=== PATIENT | female | born 1950 | race Caucasian/White ===

== ENCOUNTER → 2016-11-28 | Outpatient (CLI) | payer MEDICARE, OTHER ==
[2016-11-28 08:51] LABS: CH 32.7; HCT 43.5 % (34.0-46.0); HDW 2.06; HGB 14.2 gm/dL (11.4-16.0); MCH 33.5 pg (25.0-35.0); MCHC 32.6 g/dL (31.0-37.0); MCV 102.7 fL (80.0-100.0); Macrocytosis Slight; RBC 4.24 m/uL (3.80-5.40); WBC 9.5 k/uL (3.8-10.6)
[2016-11-28 09:35] LABS: Anion Gap 11 mmol/L; Blood Urea Nitrogen 19 mg/dL (7-17); Calcium 9.7 mg/dL (8.4-10.2); Carbon Dioxide 28 mmol/L (22-30); Chloride 105 mmol/L (98-107); Cholesterol 233 mg/dL (<200); Glucose 91 mg/dL (74-99); HDL Cholesterol 42 mg/dL (40-60); Non-African American GFR(MDRD) >60 (>60 ml/min/1.73 sqM); Potassium 4.5 mmol/L (3.5-5.1); Sodium 144 mmol/L (137-145); Triglycerides 158 mg/dL (<150)
[2016-11-28 14:26] LABS: Hemoglobin A1C 5.3 % (4.2-6.1)
== END | disposition home or self-care (01) ==
LOC: LABWHC1 07:04
PROVIDERS: ATTEND Psychiatry & Neurology Psychiatry
DX: E11.9 Type 2 diabetes mellitus without complications (principal); E03.9 Hypothyroidism, unspecified; E78.5 Hyperlipidemia, unspecified
CPT/HCPCS: 36415; 80048; 80061; 83036; 84443; 85027

== ENCOUNTER 2017-09-16 23:59 | Emergency (ER) | payer MEDICARE, OTHER ==
[2017-09-17 00:07] VITALS: TEMP 98.6
[2017-09-17] MEDS ORDERED: BUPIVACAINE (PF) 0.5% 30 ML VIAL SQ STA (00:45)
--- NOTE | 2017-09-17 01:13 | ED ---
ENT HPI - General Chief complaint: Dental/Oral Stated complaint: dental pain Time Seen by Provider: 09/17/17 00:23 Source: patient, RN notes reviewed, old records reviewed Mode of arrival: ambulatory Limitations: no limitations - History of Present Illness Initial comments: Pt is a 67 year old female with right lower dental pain for a few weeks, and reports it radiates toward her jaw and ear. She saw her dentist and was told that her teeth were fine. She reports that the pain is worsening so she came to ED. She does have multiple broken teeth. She denies decreased hearing, neck pain , nausea, fever, chills, vision changes. - Related Data Home Medications Medication Instructions Recorded Confirmed Omeprazole [PriLOSEC] 20 mg PO BID 09/20/15 10/07/15 Albuterol Inhaler [Ventolin Hfa 1 puff INHALATION RT-Q6H PRN 09/21/15 10/07/15 Inhaler] Albuterol Nebulized [Ventolin 2.5 mg INHALATION RT-Q6H PRN 09/21/15 10/07/15 Nebulized] DULoxetine HCL [Cymbalta] 60 mg PO DAILY 09/21/15 10/07/15 EPINEPHrine (Auto Inject) [Epipen] 0.3 mg IM ONCE PRN 09/21/15 10/07/15 Furosemide [Lasix] 20 mg PO BID 09/21/15 10/07/15 Potassium Chloride ER [K-Dur 20] 10 meq PO BID 09/21/15 10/07/15 clonazePAM [KlonoPIN] 1 mg PO HS 09/21/15 10/07/15 diphenhydrAMINE [Benadryl] 25 mg PO BID PRN 09/21/15 10/07/15 Lisinopril 40 mg PO QAM 10/03/15 10/07/15 amLODIPine [Norvasc] 10 mg PO QAM 10/03/15 10/07/15 clonazePAM [Clonazepam] 0.5 mg PO QAM 10/03/15 10/07/15 predniSONE 20 mg PO DIRECTED 10/03/15 10/07/15 Previous Rx's Medication Instructions Recorded Levothyroxine Sodium [Synthroid] 50 mcg PO DAILY@0630 #30 tab 09/26/15 Metoprolol Tartrate [Lopressor] 50 mg PO BID #60 tab 09/26/15 hydrALAZINE HCL [Apresoline] 25 mg PO TID #90 tab 09/26/15 HYDROcodone/APAP 7.5-325MG [[place] 1 tab PO Q6HR PRN #28 tab 10/07/15 7.5-325] Clindamycin [Cleocin] 450 mg PO TID 7 Days capsule 09/17/17 HYDROcodone/APAP 5-325MG [[place] 1 tab PO Q6HR PRN #12 tab 09/17/17 5-325] Allergies Allergy/AdvReac Type Severity Reaction Status Date / Time Latex, Natural Rubber Allergy Rash/Hives Verified 09/17/17 00:07 mold Allergy Unknown Verified 09/17/17 00:07 raw vegetable Allergy Unknown Verified 09/17/17 00:07 shellfish derived [Shellfish] Allergy Unknown Verified 09/17/17 00:08 DUST Allergy Unknown Uncoded 09/17/17 00:07 POLLEN Allergy Unknown Uncoded 09/17/17 00:07 TROPICAL FRUIT Allergy Unknown Uncoded 09/17/17 00:07 Review of Systems ROS Statement: Those systems with pertinent positive or pertinent negative responses have been documented in the HPI. ROS Other: All systems not noted in ROS Statement are negative. Past Medical History Past Medical History: Fibromyalgia, GERD/Reflux Additional Past Medical History / Comment(s): COLITIS. EDEMA FEET. History of Any Multi-Drug Resistant Organisms: None Reported Past Surgical History: Cholecystectomy, Tonsillectomy Past Anesthesia/Blood Transfusion Reactions: No Reported Reaction Past Psychological History: Anxiety Smoking Status: Never smoker Past Alcohol Use History: None Reported Past Drug Use History: None Reported - Past Family History Mother Family Medical History: Deep Vein Thrombosis (DVT) Father Family Medical History: Cancer Additional Family Medical History / Comment(s): LUNG General Exam - General Exam Comments Initial Comments: This is a 67 year old female, no distress Limitations: no limitations General appearance: alert, in no apparent distress Head exam: Present: atraumatic, normocephalic, normal inspection Eye exam: Present: normal appearance, PERRL, EOMI. Absent: scleral icterus, conjunctival injection, periorbital swelling ENT exam: Present: normal exam, mucous membranes moist, TM's normal bilaterally , other (minimally tender over right mastoid. ). Absent: normal oropharynx ( poor dentition, broken right lower molar. ) Neck exam: Present: normal inspection. Absent: tenderness, meningismus, lymphadenopathy Respiratory exam: Present: normal lung sounds bilaterally. Absent: respiratory distress, wheezes, rales, rhonchi, stridor Extremities exam: Present: normal inspection, full ROM, normal capillary refill. Absent: tenderness, pedal edema, joint swelling, calf tenderness Back exam: Present: normal inspection Neurological exam: Present: alert, oriented X3, CN II-XII intact Psychiatric exam: Present: normal affect, normal mood Course Vital Signs 09/17/17 09/17/17 00:02 03:16 Temperature 98.6 F Pulse Rate 85 69 Respiratory 18 16 Rate Blood Pressure 183/95 186/88 O2 Sat by Pulse 97 94 L Oximetry Procedures - Nerve Block Consent Obtained: verbal consent Local Anesthetic Used: Marcaine 0.5% Amount of anesthesia used: 4 Side: right Intraoral Nerve Block: inferior alveolar Procedure Successful: Yes Patient Tolerated Procedure: well, no complications Medical Decision Making - Medical Decision Making Patient is a 67 year old female with right lower dentla pain, broken tooth for weeks. Patient was minimally tender over mastoid. No ear drainage, no meningeal signs, no headache. Patient given inferior alveolar block and reports she feels better. Given mastoid tenderness, I did complete CT to rule out mastoiditis. There was no evidence of abnormalities. WBC was within normal limits. Discused starting patient on antibiotic and pain medication, discussed follow up with PCP and dentist. Return parameters discussed. - Lab Data Result diagrams: 09/17/17 02:00 09/17/17 02:00 Lab Results 09/17/17 09/17/17 Range/Units 02:00 02:00 WBC 11.5 H (3.8-10.6) k/uL RBC 4.27 (3.80-5.40) m/uL Hgb 13.7 (11.4-16.0) gm/dL Hct 43.5 (34.0-46.0) % MCV 101.9 H (80.0-100.0) fL MCH 32.1 (25.0-35.0) pg MCHC 31.5 (31.0-37.0) g/dL RDW 14.4 (11.5-15.5) % Plt Count 219 (150-450) k/uL Neutrophils % 71 % Lymphocytes % 23 % Monocytes % 4 % Eosinophils % 1 % Basophils % 1 % Neutrophils # 8.1 H (1.3-7.7) k/uL Lymphocytes # 2.7 (1.0-4.8) k/uL Monocytes # 0.4 (0-1.0) k/uL Eosinophils # 0.1 (0-0.7) k/uL Basophils # 0.1 (0-0.2) k/uL Macrocytosis Slight Sodium 142 (137-145) mmol/L Potassium 4.4 (3.5-5.1) mmol/L Chloride 103 (98-107) mmol/L Carbon Dioxide 27 (22-30) mmol/L Anion Gap 12 mmol/L BUN 15 (7-17) mg/dL Creatinine 0.80 (0.52-1.04) mg/dL Est GFR (MDRD) Af Amer >60 (>60 ml/min/1.73 sqM) Est GFR (MDRD) Non-Af >60 (>60 ml/min/1.73 sqM) Glucose 113 H (74-99) mg/dL Calcium 9.0 (8.4-10.2) mg/dL - Radiology Data Radiology results: report reviewed CT is negative for any acute process. Disposition Clinical Impression: Pain, dental Disposition: HOME SELF-CARE Condition: Good Instructions: Toothache (ED) Additional Instructions: Patient advised to follow-up with primary care provider. Return to emergency department if any alarming signs or symptoms occur. Prescriptions: Clindamycin [Cleocin] 450 mg PO TID 7 Days capsule HYDROcodone/APAP 5-325MG [[place] 5-325] 1 tab PO Q6HR PRN #12 tab PRN Reason: Pain Referrals: Doug Herbert MD [Primary Care Provider] - 1-2 days Time of Disposition: 01:12
[2017-09-17 02:04] LABS: Basophils # (A) 0.1 k/uL (0-0.2); Basophils % (A) 1 %; Eosinophils # (A) 0.1 k/uL (0-0.7); Eosinophils % (A) 1 %; HCT 43.5 % (34.0-46.0); HGB 13.7 gm/dL (11.4-16.0); Lymphocytes # (A) 2.7 k/uL (1.0-4.8); Lymphocytes % (A) 23 %; MCH 32.1 pg (25.0-35.0); MCHC 31.5 g/dL (31.0-37.0); MCV 101.9 fL (80.0-100.0); Macrocytosis Slight; Mean Platelet Volume 9.7; Monocytes # (A) 0.4 k/uL (0-1.0); Monocytes % (A) 4 %; Neutrophils # (A) 8.1 k/uL (1.3-7.7); Neutrophils % (A) 71 %; Platelet Count 219 k/uL (150-450); RBC 4.27 m/uL (3.80-5.40); RDW 14.4 % (11.5-15.5); WBC 11.5 k/uL (3.8-10.6)
[2017-09-17 02:14] LABS: Anion Gap 12 mmol/L; Blood Urea Nitrogen 15 mg/dL (7-17); Carbon Dioxide 27 mmol/L (22-30); Chloride 103 mmol/L (98-107); Glucose 113 mg/dL (74-99); Potassium 4.4 mmol/L (3.5-5.1); Sodium 142 mmol/L (137-145)
--- NOTE | 2017-09-17 02:43 | CT ---
EXAM: CT Maxillofacial Without Intravenous Contrast CLINICAL HISTORY: Reason: Pain TECHNIQUE: Axial computed tomography images of the head/brain and face without intravenous contrast. CTDI is 30.60 mGy and DLP is 624.20 mGy-cm. This CT exam was performed using one or more of the following dose reduction techniques: automated exposure control, adjustment of the mA and/or kV according to patient size, and/or use of iterative reconstruction technique. COMPARISON: None. FINDINGS: Bones/joints: No acute fracture. Soft tissues: Unremarkable. Sinuses: Mild polypoid mucosal thickening within bilateral maxillary sinuses and minimal mucosal thickening involving bilateral ethmoid and frontal sinuses. Mild right sphenoid sinus mucosal thickening. Postoperative findings related to prior endoscopic sinus surgery with maxillary antrostomies, ethmoidectomies and medial turbinectomies Mastoid air cells: Unremarkable as visualized. Orbits: Unremarkable as visualized. IMPRESSION: No acute facial bone fracture. Paranasal sinus disease as described in body of report.
[2017-09-17 03:18] VITALS: BP 186/88; PULSE 69; RESP 16
== END 2017-09-17 03:23 | disposition home or self-care (01) ==
LOC: EC 23:59
DX: K08.89 Other specified disorders of teeth and supporting structures (principal); M79.7 Fibromyalgia; K21.9 Gastro-esophageal reflux disease without esophagitis; F41.9 Anxiety disorder, unspecified; Z79.52 Long term (current) use of systemic steroids; Z79.891 Long term (current) use of opiate analgesic; Z79.899 Other long term (current) drug therapy; Z91.040 Latex allergy status; Z91.048 Other nonmedicinal substance allergy status; Z91.018 Allergy to other foods; Z91.013 Allergy to seafood
CPT/HCPCS: 36415; 64400; 70486; 80048; 85025; 99284

== ENCOUNTER → 2018-12-29 | Outpatient (CLI) | payer MEDICARE, OTHER ==
[2018-12-29 18:56] LABS: HCT 40.9 % (34.0-46.0); HGB 13.5 gm/dL (11.4-16.0); MCH 32.9 pg (25.0-35.0); MCHC 33.1 g/dL (31.0-37.0); MCV 99.5 fL (80.0-100.0); Mean Platelet Volume 10.2; Platelet Count 217 k/uL (150-450); RBC 4.11 m/uL (3.80-5.40); RDW 12.8 % (11.5-15.5)
== END | disposition home or self-care (01) ==
LOC: LABWHC1 16:57
PROVIDERS: ATTEND Psychiatry & Neurology Psychiatry
DX: E03.9 Hypothyroidism, unspecified (principal)
CPT/HCPCS: 36415; 82947; 84443; 85027

== ENCOUNTER 2019-02-02 13:29 | Inpatient (IN) | payer MEDICARE, OTHER ==
[2019-02-02] MEDS ORDERED: ALBUTEROL NEBULIZED 2.5 MG/3 ML INHALATION STA (14:35)
[2019-02-02] MEDS ORDERED: methylPREDNISolone SOD SUCCI 125 MG/2 ML VIAL IV STA (14:35)
[2019-02-02] MEDS ORDERED: IPRATROPIUM 0.5 MG/2.5 ML NEBU INHALATION STA (14:35)
--- NOTE | 2019-02-02 14:39 | ED ---
General Adult HPI - General Chief complaint: Shortness of Breath Stated complaint: DIONISIO Time Seen by Provider: 02/02/19 13:45 Source: patient, RN notes reviewed Mode of arrival: wheelchair Limitations: no limitations - History of Present Illness Initial comments: This is a 68-year-old female presents emergency department stating she has a history of asthma. Patient states she was upstairs getting an infusion when she started having some difficulty breathing and felt as though she was wheezing. Patient states she's had the infusion for 6 months and doesn't believe it's related. Patient denies any chest pain difficulty breathing shortness breath p er patient states she has a dry cough but no sputum production. Patient denies any recent fever chills. Patient denies any lightheadedness dizziness or near syncopal episode. Patient denies headache patient denies numbness weakness. Patient denies any abdominal pain patient denies nausea vomiting diarrhea. Patient denies any rashes per patient denies any sensation that her throat is closing off her airway is closing off. These symptoms are typical of her asthma. Patient denies any calf swelling or tenderness. - Related Data Home Medications Medication Instructions Recorded Confirmed Albuterol Inhaler [Ventolin Hfa 1 puff INHALATION RT-Q6H PRN 09/21/15 02/02/19 Inhaler] Albuterol Nebulized [Ventolin 2.5 mg INHALATION RT-Q6H PRN 09/21/15 02/02/19 Nebulized] DULoxetine HCL [Cymbalta] 60 mg PO DAILY 09/21/15 02/02/19 EPINEPHrine (Auto Inject) [Epipen] 0.3 mg IM ONCE PRN 09/21/15 02/02/19 Potassium Chloride ER [K-Dur 20] 10 meq PO BID 09/21/15 02/02/19 clonazePAM [KlonoPIN] 0.5 mg PO HS 09/21/15 02/02/19 diphenhydrAMINE [Benadryl] 25 mg PO BID PRN 09/21/15 02/02/19 clonazePAM [Clonazepam] 0.25 mg PO AC-BID 10/03/15 02/02/19 Tiotropium Schneider [Spiriva 1 puff INHALATION RT-DAILY 06/28/18 02/02/19 Respimat] Bumetanide [BUMEX] 1 mg PO BID 02/02/19 02/02/19 Citalopram Hydrobromide 20 mg PO DAILY 02/02/19 02/02/19 [Citalopram HBr] Levothyroxine Sodium [Synthroid] 100 mcg PO DAILY@0300 02/02/19 02/02/19 Metoprolol Succinate (ER) [Toprol 50 mg PO DAILY 02/02/19 02/02/19 Xl] Montelukast Sodium [Singulair] 10 mg PO HS 02/02/19 02/02/19 predniSONE 5 mg PO DAILY 02/02/19 02/02/19 Allergies Allergy/AdvReac Type Severity Reaction Status Date / Time Latex, Natural Rubber Allergy Rash/Hives Verified 02/02/19 13:56 mold Allergy Unknown Verified 02/02/19 13:56 raw vegetable Allergy Unknown Verified 02/02/19 13:56 shellfish derived [Shellfish] Allergy Unknown Verified 02/02/19 13:56 DUST Allergy Unknown Uncoded 02/02/19 13:44 POLLEN Allergy Unknown Uncoded 02/02/19 13:44 TROPICAL FRUIT Allergy Unknown Uncoded 02/02/19 13:44 Review of Systems ROS Statement: Those systems with pertinent positive or pertinent negative responses have been documented in the HPI. ROS Other: All systems not noted in ROS Statement are negative. Past Medical History Past Medical History: Asthma, Fibromyalgia, GERD/Reflux, Hypertension Additional Past Medical History / Comment(s): COLITIS. EDEMA FEET. History of Any Multi-Drug Resistant Organisms: None Reported Past Surgical History: Cholecystectomy, Tonsillectomy Past Anesthesia/Blood Transfusion Reactions: No Reported Reaction Past Psychological History: Anxiety Smoking Status: Former smoker Past Alcohol Use History: None Reported Past Drug Use History: None Reported - Past Family History Mother Family Medical History: Deep Vein Thrombosis (DVT) Father Family Medical History: Cancer Additional Family Medical History / Comment(s): LUNG General Exam - General Exam Comments Initial Comments: GENERAL: Patient is well-developed and well-nourished. Patient is nontoxic and well- hydrated and is in moderate distress. ENT: Neck is soft and supple. No significant lymphadenopathy is noted. Oropharynx is clear. Moist mucous membranes. Neck has full range of motion without eliciting any pain. EYES: The sclera were anicteric and conjunctiva were pink and moist. Extraocular movements were intact and pupils were equal round and reactive to light. Eyelids were unremarkable. PULMONARY: Patient is diffusely wheezing. CARDIOVASCULAR: There is a regular rate and rhythm without any murmurs gallops or rubs. ABDOMEN: Soft and nontender with normal bowel sounds. SKIN: Skin is clear with no lesions or rashes and otherwise unremarkable. NEUROLOGIC: Patient is alert and oriented x3. Cranial nerves II through XII are grossly intact. Motor and sensory are also intact. Normal speech, volume and content. Symmetrical smile. MUSCULOSKELETAL: Normal extremities with adequate strength and full range of motion. No lower extremity swelling or edema. No calf tenderness. LYMPHATICS: No significant lymphadenopathy is noted PSYCHIATRIC: Normal psychiatric evaluation. Limitations: no limitations Course Vital Signs 02/02/19 02/02/19 02/02/19 13:42 13:55 14:45 Temperature 99.0 F Pulse Rate 82 74 Respiratory 24 25 H 18 Rate Blood Pressure 147/84 134/34 O2 Sat by Pulse 98 96 Oximetry 02/02/19 02/02/19 02/02/19 15:01 15:17 15:57 Temperature Pulse Rate 72 73 79 Respiratory 18 Rate Blood Pressure 146/73 O2 Sat by Pulse 99 Oximetry Medical Decision Making - Medical Decision Making EKG shows normal sinus rhythm at [address] interval 134 QRS is 92 QT interval 408 QTC is 459 per patient's EKG shows no ST segment elevation or depression. Patient received multiple treatments in the emergency department and steroids. I listened to the patient after the treatments she was doing better and moving more air but still had some wheezing and still felt short of breath. Dr. Herbert called and wanted the patient admitted admitted the patient. - Lab Data Result diagrams: 02/02/19 13:10 02/02/19 13:10 Lab Results 02/02/19 02/02/19 02/02/19 Range/Units 13:10 13:10 13:10 WBC 8.1 (3.8-10.6) k/uL RBC 4.44 (3.80-5.40) m/uL Hgb 14.4 (11.4-16.0) gm/dL Hct 44.7 (34.0-46.0) % MCV 100.7 H (80.0-100.0) fL MCH 32.5 (25.0-35.0) pg MCHC 32.2 (31.0-37.0) g/dL RDW 12.6 (11.5-15.5) % Plt Count 227 (150-450) k/uL Neutrophils % 45 % Lymphocytes % 43 % Monocytes % 5 % Eosinophils % 4 % Basophils % 1 % Neutrophils # 3.7 (1.3-7.7) k/uL Lymphocytes # 3.5 (1.0-4.8) k/uL Monocytes # 0.4 (0-1.0) k/uL Eosinophils # 0.3 (0-0.7) k/uL Basophils # 0.1 (0-0.2) k/uL PT 9.7 (9.0-12.0) sec INR 0.9 (<1.2) APTT 26.4 (22.0-30.0) sec Sodium 142 (137-145) mmol/L Potassium 4.6 (3.5-5.1) mmol/L Chloride 104 (98-107) mmol/L Carbon Dioxide 31 H (22-30) mmol/L Anion Gap 7 mmol/L BUN 14 (7-17) mg/dL Creatinine 1.37 H (0.52-1.04) mg/dL Est GFR (CKD-EPI)AfAm 46 (>60 ml/min/1.73 sqM) Est GFR (CKD-EPI)NonAf 40 (>60 ml/min/1.73 sqM) Glucose 78 (74-99) mg/dL Calcium 9.7 (8.4-10.2) mg/dL Total Bilirubin 0.8 (0.2-1.3) mg/dL AST 40 H (14-36) U/L ALT 39 (9-52) U/L Alkaline Phosphatase 88 (38-126) U/L Troponin I (0.000-0.034) ng/mL Total Protein 7.2 (6.3-8.2) g/dL Albumin 4.5 (3.5-5.0) g/dL 02/02/19 Range/Units 13:10 WBC (3.8-10.6) k/uL RBC (3.80-5.40) m/uL Hgb (11.4-16.0) gm/dL Hct (34.0-46.0) % MCV (80.0-100.0) fL MCH (25.0-35.0) pg MCHC (31.0-37.0) g/dL RDW (11.5-15.5) % Plt Count (150-450) k/uL Neutrophils % % Lymphocytes % % Monocytes % % Eosinophils % % Basophils % % Neutrophils # (1.3-7.7) k/uL Lymphocytes # (1.0-4.8) k/uL Monocytes # (0-1.0) k/uL Eosinophils # (0-0.7) k/uL Basophils # (0-0.2) k/uL PT (9.0-12.0) sec INR (<1.2) APTT (22.0-30.0) sec Sodium (137-145) mmol/L Potassium (3.5-5.1) mmol/L Chloride (98-107) mmol/L Carbon Dioxide (22-30) mmol/L Anion Gap mmol/L BUN (7-17) mg/dL Creatinine (0.52-1.04) mg/dL Est GFR (CKD-EPI)AfAm (>60 ml/min/1.73 sqM) Est GFR (CKD-EPI)NonAf (>60 ml/min/1.73 sqM) Glucose (74-99) mg/dL Calcium (8.4-10.2) mg/dL Total Bilirubin (0.2-1.3) mg/dL AST (14-36) U/L ALT (9-52) U/L Alkaline Phosphatase (38-126) U/L Troponin I <0.012 (0.000-0.034) ng/mL Total Protein (6.3-8.2) g/dL Albumin (3.5-5.0) g/dL Disposition Clinical Impression: Asthma exacerbation Disposition: ADMITTED IP TO THIS HOSP Referrals: Doug Herbert MD [Primary Care Provider] - 1-2 days Time of Disposition: 16:10
[2019-02-02 14:51] LABS: Basophils # (A) 0.1 k/uL (0-0.2); Basophils % (A) 1 %; Eosinophils # (A) 0.3 k/uL (0-0.7); Eosinophils % (A) 4 %; HCT 44.7 % (34.0-46.0); HGB 14.4 gm/dL (11.4-16.0); Lymphocytes # (A) 3.5 k/uL (1.0-4.8); Lymphocytes % (A) 43 %; MCH 32.5 pg (25.0-35.0); MCHC 32.2 g/dL (31.0-37.0); MCV 100.7 fL (80.0-100.0); Mean Platelet Volume 9.4; Monocytes # (A) 0.4 k/uL (0-1.0); Monocytes % (A) 5 %; Neutrophils # (A) 3.7 k/uL (1.3-7.7); Neutrophils % (A) 45 %; Platelet Count 227 k/uL (150-450); RBC 4.44 m/uL (3.80-5.40); RDW 12.6 % (11.5-15.5); WBC 8.1 k/uL (3.8-10.6)
--- NOTE | 2019-02-02 14:58 | XR ---
EXAMINATION TYPE: XR chest 2V DATE OF EXAM: 02/02/2019 COMPARISON: 09/20/2015 TECHNIQUE: PA and lateral views submitted. HISTORY: Shortness of breath, cough and fever FINDINGS: The lungs are clear and there is no pneumothorax, pleural effusion, or focal pneumonia. Hypertrophi c and degenerative change of the spine. Atherosclerotic change aorta. IMPRESSION: 1. No acute process.
[2019-02-02 14:59] LABS: Albumin 4.5 g/dL (3.5-5.0); Calcium 9.7 mg/dL (8.4-10.2); Potassium 4.6 mmol/L (3.5-5.1); Total Bilirubin 0.8 mg/dL (0.2-1.3); Total Protein 7.2 g/dL (6.3-8.2)
[2019-02-02 15:00] LABS: INR 0.9 (<1.2); Partial Thromboplastin Time 26.4 sec (22.0-30.0); Prothrombin Time 9.7 sec (9.0-12.0)
[2019-02-02] MEDS: methylPREDNISolone SOD SUCCI 125 MG/2 ML VIAL IV SCH ×2 (18:38→23:51)
[2019-02-02] MEDS: clonazePAM 0.5 MG TAB PO SCH (21:06)
[2019-02-02] MEDS: POTASSIUM CHLORIDE ER 10 MEQ TAB.ER.PRT PO SCH (21:07)
[2019-02-02] MEDS: MONTELUKAST 10 MG TAB PO SCH (21:07)
[2019-02-02] MEDS: BUMETANIDE 1 MG TAB PO SCH (21:07)
[2019-02-02] MEDS: CITALOPRAM HYDROBROMIDE 20 MG TAB PO SCH (21:07)
[2019-02-02] MEDS: IPRATROPIUM-ALBUTEROL 3 ML NEB INHALATION PRN (21:13)
[2019-02-02] MEDS: LEVOTHYROXINE 100 MCG TAB PO SCH (23:55)
[2019-02-03] MEDS: methylPREDNISolone SOD SUCCI 125 MG/2 ML VIAL IV SCH ×3 (06:08→16:55)
[2019-02-03] MEDS: predniSONE 5 MG TAB PO SCH (08:53)
[2019-02-03] MEDS: POTASSIUM CHLORIDE ER 10 MEQ TAB.ER.PRT PO SCH ×2 (08:53→20:58)
[2019-02-03] MEDS: BUMETANIDE 1 MG TAB PO SCH ×2 (08:53→21:01)
[2019-02-03] MEDS: METOPROLOL SUCCINATE (ER) 50 MG TAB.ER.24H PO SCH (08:53)
[2019-02-03] MEDS: DULoxetine HCL 60 MG CAPSULE.DR PO SCH (08:53)
--- NOTE | 2019-02-03 09:05 | CT ---
EXAMINATION TYPE: CT chest wo con DATE OF EXAM: 02/03/2019 COMPARISON: Chest x-ray yesterday HISTORY: Asthma exacerbation CT DLP: 596 mGycm. Automated Exposure Control for Dose Reduction was Utilized. TECHNIQUE: CT scan of the thorax is performed without IV contrast. FINDINGS: LUNGS: The lungs are grossly clear, there is no concerning parenchymal mass or nodule identified. T here is no pleural effusion or pneumothorax seen. The tracheobronchial tree is patent. MEDIASTINUM: Lack of IV contrast is noted to limit evaluation for mediastinal and especially hilar ad enopathy. There are no definitive greater than 1 cm hilar or mediastinal lymph nodes. No cardiomega ly or pericardial effusion is seen. OTHER: [id number] multilevel spurring in the thoracic spine is present with slightly exaggerate d thoracic kyphosis. Posterior spur disc effaces the anterior thecal sac at T7-T8 level sagittal imag e 57. IMPRESSION: No suspicious acute cardiopulmonary process
[2019-02-03] MEDS: IPRATROPIUM 0.5 MG/2.5 ML NEBU INHALATION SCH ×3 (09:15→19:25)
[2019-02-03] MEDS: ACETAMINOPHEN TAB 325 MG TAB PO PRN ×3 (09:32→22:06)
[2019-02-03 11:38] LABS: Potassium 3.9 mmol/L (3.5-5.1)
--- NOTE | 2019-02-03 14:00 | P.HPIM ---
History of Present Illness H&P Date: 02/03/19 Chief Complaint: Difficulty breathing This is a 68-year-old female who had been receiving a Xolair infusion developed difficulty breathing with possible wheezing. Patient has been receiving this for the last 6 months, does not relate her difficulty in breathing to this infus ion. Harsh dry nonproductive cough. Denies any lightheadedness dizziness or focal deficits. Denies headache, loss of sensation, numbness. Denies fevers or chills Denies any chest pain, palpitations or increased shortness of breath. Denies nausea vomiting or diarrhea. Denies abdominal pain.Evaluated in the ER, started on IV steroids, nebulized bronchodilators. Afebrile, normal WBC. Creatinine on admission 1.37, had been using Motrin at home ,currently 0.85. EKG reporting normal sinus rhythm with incomplete right bundle branch block. Exertional dyspnea. Maintaining O2 sats in the mid 90s on room air. IS 2500. Chest x-ray nonacute. Chest CT with no suspicious acute cardiopulmonary process. Review of Systems ROS Statement: Those systems with pertinent positive or pertinent negative responses have been documented in the HPI. ROS Other: All systems not noted in ROS Statement are negative. Past Medical History Past Medical History: Asthma, Fibromyalgia, GERD/Reflux, Hypertension Additional Past Medical History / Comment(s): COLITIS. EDEMA FEET. History of Any Multi-Drug Resistant Organisms: None Reported Past Surgical History: Cholecystectomy, Tonsillectomy Past Anesthesia/Blood Transfusion Reactions: No Reported Reaction Past Psychological History: Anxiety Smoking Status: Former smoker Past Alcohol Use History: None Reported Past Drug Use History: None Reported - Past Family History Mother Family Medical History: Deep Vein Thrombosis (DVT) Father Family Medical History: Cancer Additional Family Medical History / Comment(s): LUNG Medications and Allergies Home Medications Medication Instructions Recorded Confirmed Type Albuterol Inhaler [Ventolin Hfa 1 puff INHALATION RT-Q6H PRN 09/21/15 02/02/19 History Inhaler] Albuterol Nebulized [Ventolin 2.5 mg INHALATION RT-Q6H PRN 09/21/15 02/02/19 History Nebulized] DULoxetine HCL [Cymbalta] 60 mg PO DAILY 09/21/15 02/02/19 History EPINEPHrine (Auto Inject) [Epipen] 0.3 mg IM ONCE PRN 09/21/15 02/02/19 History Potassium Chloride ER [K-Dur 20] 10 meq PO BID 09/21/15 02/02/19 History clonazePAM [KlonoPIN] 0.5 mg PO HS 09/21/15 02/02/19 History diphenhydrAMINE [Benadryl] 25 mg PO BID PRN 09/21/15 02/02/19 History clonazePAM [Clonazepam] 0.25 mg PO AC-BID 10/03/15 02/02/19 History Tiotropium [place] [Spiriva 1 puff INHALATION RT-DAILY 06/28/18 02/02/19 History Respimat] Bumetanide [BUMEX] 1 mg PO BID 02/02/19 02/02/19 History Citalopram Hydrobromide 20 mg PO DAILY 02/02/19 02/02/19 History [Citalopram HBr] Levothyroxine Sodium [Synthroid] 100 mcg PO DAILY@0300 02/02/19 02/02/19 History Metoprolol Succinate (ER) [Toprol 50 mg PO DAILY 02/02/19 02/02/19 History Xl] Montelukast Sodium [Singulair] 10 mg PO HS 02/02/19 02/02/19 History predniSONE 5 mg PO DAILY 02/02/19 02/02/19 History Allergies Allergy/AdvReac Type Severity Reaction Status Date / Time Latex, Natural Rubber Allergy Rash/Hives Verified 02/02/19 17:57 mold Allergy Unknown Verified 02/02/19 17:57 raw vegetable Allergy Unknown Verified 02/02/19 17:57 shellfish derived [Shellfish] Allergy Unknown Verified 02/02/19 17:57 DUST Allergy Unknown Uncoded 02/02/19 17:57 POLLEN Allergy Unknown Uncoded 02/02/19 17:57 TROPICAL FRUIT Allergy Unknown Uncoded 02/02/19 17:57 Physical Exam Vitals: Vital Signs Temp Pulse Pulse Resp BP BP Pulse Ox 02/02/19 23:00 98.2 F 77 18 148/71 96 02/02/19 21:18 84 02/02/19 21:12 76 02/02/19 20:00 98.8 F 76 18 143/66 96 02/02/19 17:48 20 02/02/19 17:38 98.4 F 76 20 134/85 94 L 02/02/19 15:57 79 18 146/73 99 02/02/19 15:17 73 02/02/19 15:01 72 02/02/19 14:45 74 18 134/34 96 02/02/19 13:55 25 H 02/02/19 13:42 99.0 F 82 24 147/84 98 Intake and Output 02/02/19 02/03/19 02/03/19 22:59 06:59 14:59 Intake Total 1050 580 Balance 1050 580 Intake: Oral 1050 580 PHYSICAL EXAM: VITAL SIGNS: As above GENERAL: Sitting up at side of bed, respiratory effort increased HEENT: Conjunctivae normal. eyes normal. Oral mucosa moist. NECK: No JVD. No thyroid enlargement. No LNs CARDIOVASCULAR: S1, S2 muffled. No murmur RESPIRATION: Breath sounds diminished in the bases. No rhonchi or crackles. No wheezing, No bronchial breathing. ABDOMEN: Soft, nontender . No guarding. no masses palpable.Bowel sounds heard. LEGS: No edema. no swelling. No calf tenderness. PSYCHIATRY: Alert and oriented -3, mood and affect normal. NERVOUS SYSTEM: Cranial N 2-12 grossly normal. Moves all 4 limbs. Diffuse weakness No focal deficits. No sensory deficit. Skin: no lesions,no rash, warm and dry Joints: No active swelling. No inflammation. Lymphatic system. No LN neck axilla or groin. Results CBC & Chem 7: 02/02/19 13:10 02/03/19 10:29 Labs: Abnormal Lab Results - Last 24 Hours (Table) 02/02/19 02/02/19 Range/Units 13:10 13:10 MCV 100.7 H (80.0-100.0) fL Carbon Dioxide 31 H (22-30) mmol/L Creatinine 1.37 H (0.52-1.04) mg/dL AST 40 H (14-36) U/L Thrombosis Risk Factor Assmnt - Choose All That Apply Each Factor Represents 1 point: Abnormal pulmonary function (COPD), Obesity (BMI >25), Swollen legs (current) Each Risk Factor Represents 2 Points: Age 61-74 years Other congenital or acquired thrombophilia - If yes, enter type in comment: No Thrombosis Risk Factor Assessment Total Risk Factor Score: 5 Thrombosis Risk Factor Assessment Level: High Risk Assessment and Plan Assessment: -Acute asthma exacerbation, in a patient with history of chronic asthma. Possible but doubtful reaction to the Xolair, as patient has been receiving these infusions for 6 months. -Acute renal insufficiency, present on admission, resolved. -Morbid Obesity, BMI 41.6 -Gastroesophageal reflux disease -Hypertension -Anxiety -Former nicotine dependence. Plan: Continue on current medication regime ,monitoring and symptomatic treatment. Maintain nebulized bronchodilators, IV steroids. Possible pulmonary toileting with incentive spirometer reinforced. Increased stimulation as tolerated. Home meds have been reviewed and resumed. Patient advised to not use Motrin on a regular basis, given her elevated creatinine on admission. GI & DVT prophylaxis in place . Potential discharge planning in progress for the next 24- 48 hours.Further recommendations to follow. The impression and plan of care has been dictated as directed. : I performed a history and examination of this patient, discussed the same with the dictator. I agree with the dictator's note ,documented as a scribe. Any additional findings or plans will be noted. Time taken: 35 minutes
[2019-02-03] MEDS ORDERED: PANTOPRAZOLE 40 MG/10 ML VIAL IVP SCH (14:15)
[2019-02-03] MEDS: IPRATROPIUM-ALBUTEROL 3 ML NEB INHALATION PRN ×2 (15:44→19:25)
[2019-02-03] MEDS: PANTOPRAZOLE 40 MG TABLET PO SCH (16:02)
[2019-02-03] MEDS: clonazePAM 0.5 MG TAB PO SCH (20:57)
[2019-02-03] MEDS: CITALOPRAM HYDROBROMIDE 20 MG TAB PO SCH (20:57)
[2019-02-03] MEDS: MONTELUKAST 10 MG TAB PO SCH (20:59)
[2019-02-03] MEDS: HEPARIN SODIUM,PORCINE 5,000 UNIT/ML 1 ML VIAL SQ SCH (20:59)
[2019-02-04] MEDS: methylPREDNISolone SOD SUCCI 125 MG/2 ML VIAL IV SCH ×2 (00:50→06:53)
[2019-02-04] MEDS: LEVOTHYROXINE 100 MCG TAB PO SCH ×2 (00:50→23:55)
[2019-02-04] MEDS: ACETAMINOPHEN TAB 325 MG TAB PO PRN ×3 (06:54→21:54)
[2019-02-04] MEDS ORDERED: PANTOPRAZOLE 40 MG TABLET PO SCH (07:30)
[2019-02-04] MEDS: IPRATROPIUM 0.5 MG/2.5 ML NEBU INHALATION SCH ×4 (09:14→20:06)
[2019-02-04] MEDS: BUMETANIDE 1 MG TAB PO SCH ×2 (09:23→21:52)
[2019-02-04] MEDS: HEPARIN SODIUM,PORCINE 5,000 UNIT/ML 1 ML VIAL SQ SCH ×2 (09:24→21:55)
[2019-02-04] MEDS: METOPROLOL SUCCINATE (ER) 50 MG TAB.ER.24H PO SCH (09:24)
[2019-02-04] MEDS: DULoxetine HCL 60 MG CAPSULE.DR PO SCH (09:25)
[2019-02-04] MEDS: PANTOPRAZOLE 40 MG TABLET PO SCH (09:25)
[2019-02-04] MEDS: POTASSIUM CHLORIDE ER 10 MEQ TAB.ER.PRT PO SCH ×2 (09:25→21:51)
[2019-02-04] MEDS: predniSONE 5 MG TAB PO SCH (09:25)
[2019-02-04] MEDS: AZITHROMYCIN 500 MG in SODIUM CHLORIDE 0.9% 250 ML IVPB SCH (10:50)
[2019-02-04] MEDS ORDERED: methylPREDNISolone SOD SUCCI 40 MG/ML 1 ML VIAL IV SCH (11:00)
[2019-02-04] MEDS: methylPREDNISolone SOD SUCCI 40 MG/ML 1 ML VIAL IV SCH ×2 (17:11→23:55)
[2019-02-04] MEDS: MONTELUKAST 10 MG TAB PO SCH (21:52)
[2019-02-04] MEDS: clonazePAM 0.5 MG TAB PO SCH (21:52)
[2019-02-04] MEDS: CITALOPRAM HYDROBROMIDE 20 MG TAB PO SCH (21:52)
[2019-02-05] MEDS: IPRATROPIUM-ALBUTEROL 3 ML NEB INHALATION PRN (07:34)
[2019-02-05] MEDS: IPRATROPIUM 0.5 MG/2.5 ML NEBU INHALATION SCH ×4 (07:36→19:18)
[2019-02-05] MEDS: ACETAMINOPHEN TAB 325 MG TAB PO PRN ×2 (08:24→20:12)
[2019-02-05] MEDS: PANTOPRAZOLE 40 MG TABLET PO SCH (08:25)
[2019-02-05] MEDS: BUMETANIDE 1 MG TAB PO SCH ×2 (08:26→20:12)
[2019-02-05] MEDS: methylPREDNISolone SOD SUCCI 40 MG/ML 1 ML VIAL IV SCH ×2 (08:26→15:59)
[2019-02-05] MEDS: AZITHROMYCIN 500 MG in SODIUM CHLORIDE 0.9% 250 ML IVPB SCH (08:26)
[2019-02-05] MEDS: POTASSIUM CHLORIDE ER 10 MEQ TAB.ER.PRT PO SCH ×2 (08:27→20:12)
[2019-02-05] MEDS: DULoxetine HCL 60 MG CAPSULE.DR PO SCH (08:27)
[2019-02-05] MEDS: METOPROLOL SUCCINATE (ER) 50 MG TAB.ER.24H PO SCH (08:27)
[2019-02-05] MEDS: HEPARIN SODIUM,PORCINE 5,000 UNIT/ML 1 ML VIAL SQ SCH ×2 (08:27→20:11)
[2019-02-05] MEDS: predniSONE 5 MG TAB PO SCH (08:27)
--- NOTE | 2019-02-05 13:15 | PN ---
PROGRESS NOTE SUBJECTIVE: 68-year-old white female with asthma exacerbation, has cough, congestion, shortness of breath with wheezing. Breathing is slowly improving. IV steroids and IV azithromycin been use. She is slowly improving. She will possibly be discharged home tomorrow. States she is not breathing good enough to go home today. Cardiovascular S1, S2. Lungs scattered rhonchi and wheeze. Hematology negative Homans. ASSESSMENT: 1. Asthma exacerbation. 2. Tracheobronchitis. 3. Acute hypoxemic respiratory distress. Continue with IV steroids, IV azithromycin, DuoNeb. Follow up in the next 24-48 hours. MMODL / IJN: [id number] /
[2019-02-05] MEDS: clonazePAM 0.5 MG TAB PO SCH ×2 (15:59→20:11)
[2019-02-05] MEDS: MONTELUKAST 10 MG TAB PO SCH (20:12)
[2019-02-05] MEDS: CITALOPRAM HYDROBROMIDE 20 MG TAB PO SCH (20:12)
[2019-02-06] MEDS: methylPREDNISolone SOD SUCCI 40 MG/ML 1 ML VIAL IV SCH ×2 (00:20→08:00)
[2019-02-06] MEDS: LEVOTHYROXINE 100 MCG TAB PO SCH (00:20)
[2019-02-06] MEDS: PANTOPRAZOLE 40 MG TABLET PO SCH (06:17)
[2019-02-06] MEDS: clonazePAM 0.5 MG TAB PO SCH (06:18)
[2019-02-06] MEDS: POTASSIUM CHLORIDE ER 10 MEQ TAB.ER.PRT PO SCH (08:01)
[2019-02-06] MEDS: HEPARIN SODIUM,PORCINE 5,000 UNIT/ML 1 ML VIAL SQ SCH (08:01)
[2019-02-06] MEDS: AZITHROMYCIN 500 MG in SODIUM CHLORIDE 0.9% 250 ML IVPB SCH (08:01)
[2019-02-06] MEDS: METOPROLOL SUCCINATE (ER) 50 MG TAB.ER.24H PO SCH (08:01)
[2019-02-06] MEDS: BUMETANIDE 1 MG TAB PO SCH (08:01)
[2019-02-06] MEDS: predniSONE 5 MG TAB PO SCH (08:02)
[2019-02-06] MEDS: DULoxetine HCL 60 MG CAPSULE.DR PO SCH (08:02)
[2019-02-06] MEDS: IPRATROPIUM 0.5 MG/2.5 ML NEBU INHALATION SCH ×2 (08:05→13:11)
[2019-02-06 08:43] VITALS: BP 150/79; PULSE 71; RESP 20; TEMP 98.1
[2019-02-06] MEDS: ACETAMINOPHEN TAB 325 MG TAB PO PRN (10:05)
--- NOTE | 2019-02-06 10:42 | P.DS ---
Providers Date of admission: 02/04/19 18:13 Expected date of discharge: 02/06/19 Attending physician: Doug Herbert Primary [facility] physician[facility] Course: Final Diagnoses: -Acute asthma exacerbation with acute tracheobronchitis, in a patient with history of chronic asthma. Possible but doubtful reaction to the Xolair, as patient has been receiving these infusions for 6 months. -Acute hypoxic respiratory failure secondary to the above -Acute renal insufficiency, present on admission, resolved. -Morbid Obesity, BMI 41.6 -Gastroesophageal reflux disease -Hypertension -Anxiety -Former nicotine dependence. Hospital course:This is a 68-year-old female who had been receiving a Xolair infusion developed difficulty breathing with possible wheezing. Patient has been receiving this for the last 6 months, does not relate her difficulty in breathing to this infusion. Harsh dry nonproductive cough. Denies any lightheadedness dizziness or focal deficits. Denies headache, loss of sensation, numbness. Denies fevers or chills Denies any chest pain, palpitations or increased shortness of breath. Denies nausea vomiting or diarrhea. Denies abdominal pain.Evaluated in the ER, started on IV steroids, nebulized bronchodilators. Afebrile, normal WBC. Creatinine on admission 1.37, had been using Motrin at home ,currently 0.85. EKG reporting normal sinus rhythm with incomplete right bundle branch block. Exertional dyspnea. Maintaining O2 sats in the mid 90s on room air. IS 2500. Chest x-ray nonacute. Chest CT with no suspicious acute cardiopulmonary process. Maintained on nebulized bronchodilators, IV antibiotics, IV steroids with significant clinical improvement. Complains of left lower leg tenderness, Doppler ultrasound ordered and pending. Patient will be discharged home in a stable condition with guarded prognosis pending Doppler. EXAM: GENERAL: Alert and oriented 3, no acute distress CARDIOVASCULAR: S1, S2 regular. No murmur RESPIRATION: Breath sounds diminished in the bases. No rhonchi, crackles,wheezing ABDOMEN: Soft, nontender . No guarding. no masses palpable.Bowel sounds heard. NERVOUS SYSTEM: No focal deficits. The impression and plan of care has been dictated as directed. : I performed a history and examination of this patient, discussed the same with the dictator. I agree with the dictator's note ,documented as a scribe. Any additional findings or plans will be noted. Time taken: 35 minutes Patient Condition at Discharge: Stable Plan - Discharge Summary New Discharge Prescriptions: New Doxycycline [Vibramycin] 100 mg PO BID #10 cap predniSONE 10 mg PO DIRECTED #30 tab Pantoprazole [Protonix] 40 mg PO AC-BRKFST #15 tablet.dr Continue diphenhydrAMINE [Benadryl] 25 mg PO BID PRN PRN Reason: Allergic Reaction Albuterol Nebulized [Ventolin Nebulized] 2.5 mg INHALATION RT-Q6H PRN PRN Reason: Shortness Of Breath Albuterol Inhaler [Ventolin Hfa Inhaler] 1 puff INHALATION RT-Q6H PRN PRN Reason: Shortness Of Breath DULoxetine HCL [Cymbalta] 60 mg PO DAILY clonazePAM [KlonoPIN] 0.5 mg PO HS EPINEPHrine (Auto Inject) [Epipen] 0.3 mg IM ONCE PRN PRN Reason: Anaphylaxis Potassium Chloride ER [K-Dur 20] 10 meq PO BID clonazePAM [Clonazepam] 0.25 mg PO AC-BID Tiotropium Umpire [Spiriva Respimat] 1 puff INHALATION RT-DAILY Levothyroxine Sodium [Synthroid] 100 mcg PO DAILY@0300 Metoprolol Succinate (ER) [Toprol XL] 50 mg PO DAILY Montelukast Sodium [Singulair] 10 mg PO HS Bumetanide [BUMEX] 1 mg PO BID Citalopram Hydrobromide [Citalopram HBr] 20 mg PO DAILY predniSONE 5 mg PO DAILY #0 Discharge Medication List Albuterol Inhaler [Ventolin Hfa Inhaler] 1 puff INHALATION RT-Q6H PRN 09/21/15 [History] Albuterol Nebulized [Ventolin Nebulized] 2.5 mg INHALATION RT-Q6H PRN 09/21/15 [History] DULoxetine HCL [Cymbalta] 60 mg PO DAILY 09/21/15 [History] EPINEPHrine (Auto Inject) [Epipen] 0.3 mg IM ONCE PRN 09/21/15 [History] Potassium Chloride ER [K-Dur 20] 10 meq PO BID 09/21/15 [History] clonazePAM [KlonoPIN] 0.5 mg PO HS 09/21/15 [History] diphenhydrAMINE [Benadryl] 25 mg PO BID PRN 09/21/15 [History] clonazePAM [Clonazepam] 0.25 mg PO AC-BID 10/03/15 [History] Tiotropium Ump[place] [Spiriva Respimat] 1 puff INHALATION RT-DAILY 06/28/18 [History] Bumetanide [BUMEX] 1 mg PO BID 02/02/19 [History] Citalopram Hydrobromide [Citalopram HBr] 20 mg PO DAILY 02/02/19 [History] Levothyroxine Sodium [Synthroid] 100 mcg PO DAILY@0300 02/02/19 [History] Metoprolol Succinate (ER) [Toprol XL] 50 mg PO DAILY 02/02/19 [History] Montelukast Sodium [Singulair] 10 mg PO HS 02/02/19 [History] Doxycycline [Vibramycin] 100 mg PO BID #10 cap 02/06/19 [Rx] Pantoprazole [Protonix] 40 mg PO AC-BRKFST #15 tablet.dr 02/06/19 [Rx] predniSONE 5 mg PO DAILY #0 02/06/19 [Rx] predniSONE 10 mg PO DIRECTED #30 tab 02/06/19 [Rx] Follow up Appointment(s)/Referral(s): Doug Herbert MD [Primary Care Provider] - 3 Days Pablo Fountain MD [STAFF PHYSICIAN] - 10 Days Activity/Diet/Wound Care/Special Instructions: Left leg doppler pending
--- NOTE | 2019-02-06 10:57 | US ---
EXAMINATION TYPE: US venous doppler duplex LE LT DATE OF EXAM: 02/06/2019 9:57 AM COMPARISON: NONE CLINICAL HISTORY: rule out DVT. Rule out DVT. Pt fell on left leg 4 months ago. Pain and swelling. Pt on heparin. SIDE PERFORMED: Left TECHNIQUE: The lower extremity deep venous system is examined utilizing real time linear array sonog ratna with graded compression, doppler sonography and color-flow sonography. VESSELS IMAGED: External Iliac Vein (EIV) Common Femoral Vein Deep Femoral Vein Greater Saphenous Vein * Femoral Vein Popliteal Vein Small Saphenous Vein * Proximal Calf Veins (* superficial vessels) Grayscale, color doppler, spectral doppler imaging performed of the deep veins of the lower extremiti es. Left Leg: No evidence of DVT in the left lower extremity. IMPRESSION: No evident deep venous arthrosis at or above the left knee.
== END 2019-02-06 13:10 | disposition home or self-care (01) | DRG 202 ==
LOC: EC 13:29 → 6PED 16:13 → OBSVTOIN 02-04 18:13
PROVIDERS: ADMIT Family Medicine; ATTEND Family Medicine
DX: J45.901 Unspecified asthma with (acute) exacerbation (principal); J96.01 Acute respiratory failure with hypoxia; Z68.41 Body mass index [BMI] 40.0-44.9, adult; J20.9 Acute bronchitis, unspecified; E66.01 Morbid (severe) obesity due to excess calories; F41.9 Anxiety disorder, unspecified; I10 Essential (primary) hypertension; I45.10 Unspecified right bundle-branch block; K21.9 Gastro-esophageal reflux disease without esophagitis; M79.7 Fibromyalgia; N28.9 Disorder of kidney and ureter, unspecified; Z79.52 Long term (current) use of systemic steroids; Z79.890 Hormone replacement therapy; Z79.899 Other long term (current) drug therapy; Z87.891 Personal history of nicotine dependence; Z91.040 Latex allergy status; Z91.013 Allergy to seafood; Z90.49 Acquired absence of other specified parts of digestive tract; Z83.2 Family history of diseases of the blood and blood-forming organs and certain disorders involving the immune mechanism; Z80.1 Family history of malignant neoplasm of trachea, bronchus and lung
CPT/HCPCS: 36415; 71046; 71250; 80048; 80053; 84484; 85025; 85610; 85730; 87502; 93005; 94640; 94760; 96374; 99285

== ENCOUNTER → 2019-05-04 | Outpatient (CLI) | payer MEDICARE, OTHER ==
--- NOTE | 2019-05-04 14:44 | XR ---
EXAMINATION TYPE: XR knee complete LT DATE OF EXAM: 05/04/2019 CLINICAL HISTORY: Chronic left knee pain. TECHNIQUE: Three views of the left knee are obtained. COMPARISON: None. FINDINGS: There is no acute fracture/dislocation evident in the left knee. Mild tricompartment joint space loss is seen without spurring. The overlying soft tissue appears unremarkable. IMPRESSION: As above.
--- NOTE | 2019-05-04 14:46 | XR ---
EXAMINATION TYPE: XR lumbosacral spine min 4V DATE OF EXAM: 05/04/2019 CLINICAL HISTORY: Chronic back pain. History of fibromyalgia. TECHNIQUE: Frontal, lateral, and oblique images of the lumbar spine are obtained. COMPARISON: None FINDINGS: There are 5 lumbar type vertebral bodies identified. The lumbar spine shows grade 1 anter olisthesis L4 and L5 without evidence of acute fracture or dislocation. Vertebral body heights are wi thin normal limits. Moderate disc space narrowing L4-L5 level. [id number] disc space narrowin g L5-S1 level. Multilevel facet arthropathy mid to lower lumbar spine. The oblique images appear with in normal limits. Vascular calcification overlying abdominal aorta is seen. IMPRESSION: As above.
--- NOTE | 2019-05-04 14:54 | XR ---
EXAMINATION TYPE: XR Hip Complete LT DATE OF EXAM: 05/04/2019 CLINICAL HISTORY: Chronic pain. Fibromyalgia. TECHNIQUE: AP and frogleg views of the left hip are obtained. COMPARISON: None. FINDINGS: There is no acute fracture/dislocation evident in the left hip. Mild axial joint space los s in the left. The overlying soft tissue appears unremarkable. IMPRESSION: As above.
== END | disposition home or self-care (01) ==
LOC: RADXRMAIN 13:59
PROVIDERS: ATTEND Family Medicine
DX: M99.73 Connective tissue and disc stenosis of intervertebral foramina of lumbar region (principal); M99.74 Connective tissue and disc stenosis of intervertebral foramina of sacral region; M43.16 Spondylolisthesis, lumbar region; M46.96 Unspecified inflammatory spondylopathy, lumbar region; M79.7 Fibromyalgia
CPT/HCPCS: 72110; 73502

== ENCOUNTER → 2019-07-05 | Outpatient (CLI) | payer MEDICARE, OTHER ==
[2019-07-05 17:08] LABS: HCT 44.6 % (34.0-46.0); HGB 14.1 gm/dL (11.4-16.0); MCH 33.6 pg (25.0-35.0); MCHC 31.5 g/dL (31.0-37.0); MCV 106.5 fL (80.0-100.0); Macrocytosis Moderate; Platelet Count 223 k/uL (150-450); RBC 4.19 m/uL (3.80-5.40); WBC 8.7 k/uL (3.8-10.6)
[2019-07-06 00:53] LABS: African American GFR (CKD) 88.4 (60.0-200.0); Albumin 4.5 g/dL (3.80-4.90); Albumin/Globulin Ratio 2.81 (1.60-3.17); Anion Gap 12.5 mmol/L (4.00-12.00); BUN/Creat Ratio 17.5 Ratio (12.00-20.00); Carbon Dioxide 28.5 mmol/L (21.6-31.8); Chol/HDL Ratio 3.95; Globulin 1.6 g/dL (1.6-3.3); LDL Cholesterol,Calculated 138.4 mg/dL (0.0-131.0); Potassium 4.2 mmol/L (3.5-5.5); Total Bilirubin 0.8 mg/dL (0.2-1.2); Total Protein 6.1 g/dL (6.2-8.2); VLDL Calculation 29.6 mg/dL (5.00-40.00)
[2019-07-06 01:01] LABS: T4, Free (Free Thyroxine) 1.1 ng/dL (0.80-1.80)
[2019-07-06 04:29] LABS: Hemoglobin A1C 5.5 % (4.0-6.0)
== END | disposition home or self-care (01) ==
LOC: LABWHC1 15:22
PROVIDERS: ATTEND Psychiatry & Neurology Psychiatry
DX: E03.9 Hypothyroidism, unspecified (principal); F33.2 Major depressive disorder, recurrent severe without psychotic features; Z79.899 Other long term (current) drug therapy
CPT/HCPCS: 36415; 80053; 80061; 83036; 84439; 84443; 85027

== ENCOUNTER → 2019-08-30 | Outpatient (CLI) | payer MEDICARE, OTHER ==
[2019-08-30 19:19] LABS: Albumin 4.7 g/dL (3.80-4.90); Albumin/Globulin Ratio 2.76 (1.60-3.17); Bilirubin, Conjugated 0.2 mg/dL (0.20-0.40); Bilirubin,Unconjugated 0.6 mg/dL; Globulin 1.7 g/dL (1.6-3.3); Total Bilirubin 0.8 mg/dL (0.2-1.2); Total Protein 6.4 g/dL (6.2-8.2)
== END | disposition home or self-care (01) ==
LOC: LABWHC1 13:06
PROVIDERS: ATTEND Psychiatry & Neurology Psychiatry
DX: D64.9 Anemia, unspecified (principal); R94.5 Abnormal results of liver function studies
CPT/HCPCS: 36415; 80076; 82607

== ENCOUNTER → 2019-10-26 | Outpatient (CLI) | payer MEDICARE, OTHER ==
--- NOTE | 2019-10-26 15:38 | CONS ---
CONSULTATION DATE OF SERVICE: 10/26/2019 A 69-year-old lady who has been evaluated in the [facility] for possible obstructive sleep apnea-hypopnea syndrome. HISTORY OF PRESENT ILLNESS/SLEEP-WAKE EVALUATION: Patient goes to bed usually around 10 to 11 pm but then cannot fall asleep for several hours. falling asleep around 2 a.m. and wake up from sleep once and gets up in the morning at 10 to 11 am in the morning. According to her family, she snores, and has episodes of stopped breathing during the sleep. She is also grinding her teeth, has awakenings with dry mouth, panic attack, palpitation, restless legs and sleep talking. Patient significantly moving during the night all over and sometimes her cover is out. She is also twitching and moving your legs. Sometimes patient feels sleepy during the day. Occasionally may take naps, drink up to 3 caffeinated beverages during the day. [place] Sleepiness scale is 8. No history of hypnagogic hallucinations, sleep paralysis or cataplexy. PAST MEDICAL HISTORY: Positive for hypertension, swelling of the legs, hyperlipidemia, hypothyroidism, allergy, asthma, and COPD, depression. PAST SURGICAL HISTORY: Tonsillectomy, cholecystectomy. MEDICATIONS: Levothyroxine, omeprazole, Valacyclovir, atorvastatin, metoprolol, , Clor-Travis, prednisone, montelukast, clonazepam, vitamin D2 supplement, dicyclomine, cyclobenzaprine, Spiriva, Symbicort, Ventolin, albuterol, ipratropium, bromide, duloxetine, citalopram. Zosyn. REVIEW OF SYSTEMS: Awakenings from sleep, tiredness and sleepiness during the day, episodes of swelling of the legs, episodes of depression. FAMILY HISTORY: Hypertension, heart problems, fibromyalgia, arthritis, asthma, cancer, headaches, pneumoniae, emphysema, bronchitis, acid reflux, ulcers, nasal polyps, thyroid problems, anemia, during the sleep, restless legs. PHYSICAL EXAM: A lady without distress, BP 172/83, HR 81, RR 16, height 5 and 3, weight 243, body mass index 43.0, temperature 98.3, oxygen saturation at room air 98%. OROPHARYNX: Extremely low position of soft palate. Mallampati 4. Slight restriction of nasal breathing. NECK: 16 inches in circumference. LUNGS: Obese. HEENT: PERRLA, EOMI, evaluation of oropharynx showed tongue protrudes midline. NECK: Supple, no JVD. Thyroid is not palpable. LUNGS: Clear to percussion and to auscultation. Good air exchange. No wheezing or rhonchi. HEART: S1, S2 regular. No murmurs, gallops, or rubs. ABDOMEN: Soft and nontender. Bowel sounds are present. No organomegaly appreciated. EXTREMITIES: No clubbing or cyanosis. WATERPROOF COATING MACHINE TENDER: Awake, alert, and oriented X3. Cranial nerves 2 to 7 intact. There is no fasciculation or atrophy. noted. No focal deficits observed. IMPRESSION: 1. Snoring, witnessed episodes of stopped breathing during the sleep, awakenings from sleep with a dry mouth and nocturia, extremely low position of soft palate, Mallampati 4. 2. Wide neck, 16 inches, obstructive sleep apnea-hypopnea syndrome. 3. Significant amount of movements during the sleep, possible periodic limb movements. 4. Obesity, body mass index 43.0. 5. Hypertension. 6. Hyperlipidemia. 7. Episodes of swelling of the legs. 8. History of depression. 9. Swelling of the legs. 10.Hypothyroidism. 11.Allergy. 12.History of chronic obstructive pulmonary disease and asthma, on multiple inhalers. 13.Status post cholecystectomy. 14.Status post tonsillectomy. PLAN: 1. Polysomnography for evaluation of patient's breathing during sleep. 2. CPAP/BiPAP titration if sleep study confirms I will see patient for follow up visit to explain results of testing and following plan. Thank you very much for referring this patient for consultation. Sincerely, Kt Arevalo MD, PhD, FAASM Diplomat of [place] [employer] [place] [employer] Certified Coding Specialist of [facility] [place] MMODL / IJN: [id number] /
== END | disposition home or self-care (01) ==
LOC: SLEEP 13:31
PROVIDERS: ATTEND Internal Medicine
DX: G47.33 Obstructive sleep apnea (adult) (pediatric) (principal); E66.9 Obesity, unspecified; Z68.41 Body mass index [BMI] 40.0-44.9, adult; I10 Essential (primary) hypertension; E78.5 Hyperlipidemia, unspecified; R22.40 Localized swelling, mass and lump, unspecified lower limb; E03.9 Hypothyroidism, unspecified; Z87.09 Personal history of other diseases of the respiratory system; Z90.49 Acquired absence of other specified parts of digestive tract; Z90.89 Acquired absence of other organs; Z79.899 Other long term (current) drug therapy; T78.40XA Allergy, unspecified, initial encounter
CPT/HCPCS: 99211

== ENCOUNTER → 2020-03-28 | Outpatient (CLI) | payer MEDICARE, OTHER ==
[2020-03-28 12:08] LABS: Basophils % (A) 0 %; Eosinophils # (A) 0.2 k/uL (0-0.7); Eosinophils % (A) 3 %; HCT 41.1 % (34.0-46.0); HGB 13.5 gm/dL (11.4-16.0); Lymphocytes # (A) 3.2 k/uL (1.0-4.8); Lymphocytes % (A) 39 %; MCH 34.3 pg (25.0-35.0); MCHC 32.8 g/dL (31.0-37.0); MCV 104.5 fL (80.0-100.0); Macrocytosis Slight; Mean Platelet Volume 10.6; Monocytes # (A) 0.4 k/uL (0-1.0); Monocytes % (A) 5 %; Neutrophils # (A) 4.3 k/uL (1.3-7.7); Neutrophils % (A) 52 %; Platelet Count 203 k/uL (150-450); RBC 3.93 m/uL (3.80-5.40); RDW 13.1 % (11.5-15.5); WBC 8.3 k/uL (3.8-10.6)
[2020-03-28 17:25] LABS: T4, Free (Free Thyroxine) 1.1 ng/dL (0.80-1.80)
[2020-03-28 17:36] LABS: African American GFR (CKD) 76.1 (60.0-200.0); Albumin 4.6 g/dL (3.80-4.90); Albumin/Globulin Ratio 2.3 (1.60-3.17); Anion Gap 7.9 mmol/L (4.00-12.00); BUN/Creat Ratio 17.78 Ratio (12.00-20.00); Calcium 9.4 mg/dL (8.7-10.3); Carbon Dioxide 35.1 mmol/L (21.6-31.8); Chol/HDL Ratio 3.63; LDL Cholesterol,Calculated 91.4 mg/dL (0.0-131.0); Non-African American GFR(CKD) 65.7 (60.0-200.0); Potassium 3.6 mmol/L (3.5-5.5); Total Bilirubin 1.4 mg/dL (0.2-1.2); Total Protein 6.6 g/dL (6.2-8.2); VLDL Calculation 21.6 mg/dL (5.00-40.00)
[2020-03-28 19:21] LABS: Hemoglobin A1C 6.3 % (4.0-6.0)
== END | disposition home or self-care (01) ==
LOC: LABWHC1 10:04
PROVIDERS: ATTEND Psychiatry & Neurology Psychiatry
DX: E03.9 Hypothyroidism, unspecified (principal); E78.5 Hyperlipidemia, unspecified; Z79.899 Other long term (current) drug therapy
CPT/HCPCS: 36415; 80053; 80061; 83036; 84439; 84443; 85025

== ENCOUNTER → 2020-07-04 | Outpatient (CLI) | payer MEDICARE, OTHER ==
[2020-07-04 10:17] LABS: HCT 42.8 % (34.0-46.0); HGB 13.8 gm/dL (11.4-16.0); MCH 34.4 pg (25.0-35.0); MCHC 32.4 g/dL (31.0-37.0); MCV 106.4 fL (80.0-100.0); Macrocytosis Moderate; Mean Platelet Volume 9.7; Platelet Count 194 k/uL (150-450); RBC 4.02 m/uL (3.80-5.40); RDW 12.5 % (11.5-15.5); WBC 9.5 k/uL (3.8-10.6)
[2020-07-04 17:13] LABS: Hemoglobin A1C 5.7 % (4.0-6.0)
[2020-07-04 19:28] LABS: African American GFR (CKD) 76.1 (60.0-200.0); Albumin 4.4 g/dL (3.80-4.90); Albumin/Globulin Ratio 2.44 (1.60-3.17); Anion Gap 11.3 mmol/L (4.00-12.00); BUN/Creat Ratio 18.89 Ratio (12.00-20.00); Calcium 9.3 mg/dL (8.7-10.3); Carbon Dioxide 29.7 mmol/L (21.6-31.8); Globulin 1.8 g/dL (1.6-3.3); Non-African American GFR(CKD) 65.7 (60.0-200.0); Potassium 3.6 mmol/L (3.5-5.5); Total Bilirubin 0.8 mg/dL (0.3-1.2); Total Protein 6.2 g/dL (6.2-8.2)
== END | disposition home or self-care (01) ==
LOC: LABWHC1 09:31
PROVIDERS: ATTEND Psychiatry & Neurology Psychiatry
DX: E11.9 Type 2 diabetes mellitus without complications (principal); Z79.899 Other long term (current) drug therapy
CPT/HCPCS: 36415; 80053; 83036; 85027

== ENCOUNTER → 2021-05-08 | Outpatient (CLI) | payer MEDICARE, OTHER ==
[2021-05-09 01:34] LABS: Gliadin AB IgA, Deaminated NEGATIVE (NEGATIVE); Gliadin AB IgA, Unit 0.2 U/mL; Gliadin AB IgG, Deaminated NEGATIVE (NEGATIVE)
== END | disposition home or self-care (01) ==
LOC: LABWHC1 13:55
PROVIDERS: ATTEND Internal Medicine Gastroenterology
DX: K52.832 Lymphocytic colitis (principal)
CPT/HCPCS: 36415; 83516

== ENCOUNTER → 2022-03-12 | Outpatient (CLI) | payer MEDICARE ==
[2022-03-12 15:14] LABS: HCT 43.5 % (37.2-46.3); HGB 13.9 g/dL (12.0-15.0); MCH 33.4 pg (27.0-32.0); MCV 104.6 fL (80.0-97.0); NRBC Per 100 WBC 0 /100 WBCS (0.0-0.0); Platelet Count 163 X 10*3/uL (140-440); RBC 4.16 X 10*6/uL (4.10-5.20); RDW 13.1 % (11.5-14.5); WBC 9.73 X 10*3/uL (4.50-10.00)
[2022-03-12 15:43] LABS: ALT 28 U/L (8-44); AST 26 U/L (13-35); Albumin 4.4 g/dL (3.8-4.9); Albumin/Globulin Ratio 2.34 (1.60-3.17); Alkaline Phosphatase 70 U/L (41-126); BUN/Creat Ratio 14.81 Ratio (12.00-20.00); Blood Urea Nitrogen 12.4 mg/dL (9.0-27.0); Calcium 9.6 mg/dL (8.7-10.3); Carbon Dioxide 27.6 mmol/L (20.0-27.5); Chloride 102 mmol/L (96-109); Chol/HDL Ratio 3.37 Ratio; Globulin 1.9 g/dL (1.6-3.3); Glucose 98 mg/dL (70-110); LDL Cholesterol,Calculated 80.6 mg/dL (0.0-131.0); Non-African American GFR(CKD) 70.7 (60.0-200.0); Potassium 3.7 mmol/L (3.5-5.5); Sodium 141 mmol/L (135-145); Total Protein 6.3 g/dL (6.2-8.2)
== END | disposition home or self-care (01) ==
LOC: LABWHC1 10:36
PROVIDERS: ATTEND Psychiatry & Neurology Psychiatry
DX: I10 Essential (primary) hypertension (principal); E03.9 Hypothyroidism, unspecified
CPT/HCPCS: 36415; 80053; 80061; 83036; 84439; 84443; 85027

== ENCOUNTER → 2023-10-05 | Outpatient (CLI) | payer MEDICARE ==
[2023-10-05 18:49] LABS: HCT 44.4 % (37.2-46.3); HGB 14.4 g/dL (12.0-15.0); MCH 33.3 pg (27.0-32.0); MCHC 32.4 g/dL (32.0-37.0); MCV 102.8 FL (80.0-97.0); Mean Platelet Volume 14.8 FL (9.5-12.2); NRBC Per 100 WBC 0 X 10*3/uL (0.00-0.01); Platelet Count 147 X 10*3/uL (140-440); RBC 4.32 X 10*6/uL (4.10-5.20); RDW 13.2 % (11.5-14.5); WBC 9.25 X 10*3/uL (4.50-10.00)
[2023-10-05 18:57] LABS: Blood Urea Nitrogen 30.2 mg/dL (9.0-27.0); Carbon Dioxide 35.8 mmol/L (21.6-31.8); Chloride 94 mmol/L (96-109); Potassium 2.7 mmol/L (3.5-5.5); Sodium 145 mmol/L (135-145)
== END | disposition home or self-care (01) ==
LOC: LABPAT 14:29
PROVIDERS: ATTEND Internal Medicine Interventional Cardiology
DX: Z01.812 Encounter for preprocedural laboratory examination (principal); I25.10 Atherosclerotic heart disease of native coronary artery without angina pectoris
CPT/HCPCS: 80051; 82565; 84520; 85027

== ENCOUNTER 2023-10-12 09:09 | Day surgery (SDC) | payer MEDICARE ==
[~2023-10-12 09:09] MED LIST: ALPRAZolam 0.25 MG TAB PO PRN; ASPIRIN 325 MG TAB PO ONE; HEPARIN SODIUM,PORCINE (1 ML) 2,500 UNIT in SODIUM CHLORIDE 0.9% 250 ML IRRIGATION PRN; HEPARIN SODIUM,PORCINE 10,000 UNIT in SODIUM CHLORIDE 0.9% 1,000 ML IRRIGATION PRN; NITROGLYCERIN SL TABS 0.4 MG TAB SUBLINGUAL PRN; SODIUM CHLORIDE 0.9% 1,000 ML in EMPTY BAG 1 BAG IV SCH
[2023-10-12 09:40] LABS: Glucose,Whole Blood 125 mg/dL (70-110)
[2023-10-12] MEDS ORDERED: FAMOTIDINE 20 MG/2 ML VIAL IV STA (09:43)
[2023-10-12] MEDS ORDERED: diphenhydrAMINE 50 MG/ML 1 ML VIAL IVP STA (09:43)
[2023-10-12] MEDS ORDERED: methylPREDNISolone SOD SUCCI 125 MG/2 ML VIAL IV STA (09:43)
[2023-10-12 10:05] LABS: African American GFR (CKD) 36 (>60 ml/min/1.73 sqM); Anion Gap 11 mmol/L; Blood Urea Nitrogen 60 mg/dL (7-17); Calcium 9.4 mg/dL (8.4-10.2); Carbon Dioxide 38 mmol/L (22-30); Chloride 87 mmol/L (98-107); Glucose 127 mg/dL (74-99); Non-African American GFR(CKD) 31 (>60 ml/min/1.73 sqM); Sodium 136 mmol/L (137-145)
[2023-10-12 10:11] LABS: Potassium 2.6 mmol/L (3.5-5.1)
[2023-10-12] MEDS ORDERED: Potassium Replacement Protocol 1 EACH MISC MISCELLANE PRN (10:13)
[2023-10-12] MEDS: POTASSIUM CHLORIDE ER 20 MEQ TAB.ER PO SCH (10:15)
[2023-10-12 10:17] VITALS: RESP 18; TEMP 97.9
[2023-10-12] MEDS ORDERED: VERAPAMIL SYRINGE (5 MG/10 ML) INTRAARTER ONE (12:51)
[2023-10-12] MEDS ORDERED: MIDAZOLAM 2 MG/2 ML VIAL IVP ONE (12:51)
[2023-10-12] MEDS ORDERED: HEPARIN SODIUM 1,000 UN/ML (10ML VL) IV ONE (12:51)
[2023-10-12] MEDS ORDERED: LIDOCAINE 1% INJ 10MG/ML (30 ML VIAL-PF) SQ ONE (12:51)
[2023-10-12] MEDS ORDERED: IOPAMIDOL-300 100ML BTL INJ ONE (12:59)
[2023-10-12] MEDS ORDERED: RX INFO: IV CONTRAST WAS GIVEN 1 EACH MISC MISCELLANE PRN (13:05)
--- NOTE | 2023-10-12 13:08 | P.PCN ---
Date of Procedure: 10/12/23 Operative Findings: CARDIAC CATHETERIZATION PERFORMING PHYSICIAN: Ricardo Hairston MD, RPVI PROCEDURE PERFORMED: 1. Selective right and left coronary angiogram 2. Left heart catheterization 3. Ultrasound-guided access of the right radial artery INDICATION: Abnormal myocardial perfusion imaging stress is in this symptomatic 71-year-old female patient COMPLICATION: None APPROACH: Right radial artery LEVEL OF SEDATION: Moderate with a sedation length of 10 minutes PROCEDURE DESCRIPTION: After obtaining an informed consent, the patient was brought to cardiac landscape laborer. Local anesthesia was performed using lidocaine subcutaneously. The right radial artery was cannulated using Seldinger technique, the guidewire passed easily, following that we advanced a 5-Divehi sheath dilator assembly, the wire and dilator were removed and sheath was flushed. Following that, 2 mg of verapamil along with 3000 unit heparin were given. Selective right and left coronary angiogram using a 6-Divehi JR4 and JL 3.5 catheters. Following that we did left heart catheterization using 6-Divehi pigtail catheter. The procedure was completed there was no complication. SELECTIVE CORONARY ANGIOGRAM: The right coronary artery: Large-caliber vessel and a dominant vessel was mild disease by the ostium Left main: Is normal and bifurcates into an LCx and LAD The left circumflex: Large caliber vessel nondominant vessel. The LCx is angiographically normal and gives rises into the first and second obtuse marginal branches and both appeared to be angiographically normal The left anterior descending artery: Large-caliber vessel appears to be normal and gives rise into a large diagonal branch which seems to be normal HEMODYNAMICS: LVDP was about 28 mmHg was no significant gradient across aortic valve CONCLUSION: 1. Mild CAD 2. Elevated left-sided filling pressure POSTPROCEDURE MANAGEMENT: Medical treatment
[2023-10-12] MEDS ORDERED: SODIUM CHLORIDE 0.9% 1,000 ML IV SCH (13:15)
[2023-10-12 16:51] VITALS: BP 112/57; PULSE 54
== END 2023-10-12 16:50 | disposition home or self-care (01) ==
LOC: CATHCVL 09:09
PROVIDERS: ATTEND Internal Medicine Interventional Cardiology
DX: I08.8 Other rheumatic multiple valve diseases (principal); I25.10 Atherosclerotic heart disease of native coronary artery without angina pectoris; I10 Essential (primary) hypertension; E78.5 Hyperlipidemia, unspecified; I48.0 Paroxysmal atrial fibrillation; Z79.01 Long term (current) use of anticoagulants; Z79.899 Other long term (current) drug therapy
CPT/HCPCS: 93458; 76937; 80048; 84132; C1769; C1894; J2250; J2001; J1644; Q9967

== ENCOUNTER → 2023-11-18 | Outpatient (CLI) | payer MEDICARE ==
[2023-11-18 18:55] LABS: HCT 44.1 % (37.2-46.3); HGB 14.8 g/dL (12.0-15.0); MCH 34.6 pg (27.0-32.0); MCHC 33.6 g/dL (32.0-37.0); Mean Platelet Volume 13.3 FL (9.5-12.2); NRBC Per 100 WBC 0 X 10*3/uL (0.00-0.01); Platelet Count 131 X 10*3/uL (140-440); RBC 4.28 X 10*6/uL (4.10-5.20); RDW 13.9 % (11.5-14.5); WBC 10.13 X 10*3/uL (4.50-10.00)
[2023-11-18 22:53] LABS: Blood Urea Nitrogen 40.7 mg/dL (9.0-27.0); Chloride 84 mmol/L (96-109); Potassium 2.5 mmol/L (3.5-5.5); Sodium 138 mmol/L (135-145)
== END | disposition home or self-care (01) ==
LOC: LABPAT 14:42
PROVIDERS: ATTEND Internal Medicine Interventional Cardiology
DX: Z01.812 Encounter for preprocedural laboratory examination (principal); I25.10 Atherosclerotic heart disease of native coronary artery without angina pectoris
CPT/HCPCS: 80051; 80053; 80061; 82043; 82565; 82570; 83036; 84520; 85025; 85027

== ENCOUNTER → 2023-11-23 | Day surgery (SDC) | payer MEDICARE ==
[~2023-11-23] MED LIST changes: +ALPRAZolam 0.5 MG TAB PO PRN; -ASPIRIN 325 MG TAB PO ONE; +LIDOCAINE 1% INJ 10MG/ML (20 ML MDV) ONE; -SODIUM CHLORIDE 0.9% 1,000 ML in EMPTY BAG 1 BAG IV SCH; +fentaNYL (PF) 50 MCG/ML 2 ML AMP ONE
[2023-11-23] MEDS: SODIUM CHLORIDE 0.9% 1,000 ML IV ONE (10:27)
[2023-11-23 10:37] LABS: Glucose,Whole Blood 104 mg/dL (70-110)
[2023-11-23] MEDS: ASPIRIN 325 MG TAB PO STA (10:45)
[2023-11-23] MEDS: SODIUM CHLORIDE 0.9% 1,000 ML in EMPTY BAG 1 BAG IV SCH (10:45)
[2023-11-23 10:49] VITALS: RESP 16; TEMP 98.1
[2023-11-23 10:58] LABS: African American GFR (CKD) 79 (>60 ml/min/1.73 sqM); Anion Gap 9 mmol/L; Blood Urea Nitrogen 24 mg/dL (7-17); Carbon Dioxide 25 mmol/L (22-30); Chloride 105 mmol/L (98-107); Glucose 112 mg/dL (74-99); Non-African American GFR(CKD) 68 (>60 ml/min/1.73 sqM); Potassium 3.7 mmol/L (3.5-5.1); Sodium 139 mmol/L (137-145)
[2023-11-23] MEDS: MIDAZOLAM 2 MG/2 ML VIAL IVP ONE ×2 (12:28)
[2023-11-23] MEDS: BENZOCAINE SPRAY 1 CAN TOPICAL ONE (12:28)
[2023-11-23] MEDS: fentaNYL (PF) 50 MCG/1 ML VIAL IVP ONE (12:28)
--- NOTE | 2023-11-23 12:54 | P.PCN ---
Date of Procedure: 11/23/23 Operative Findings: TRANSESOPHAGEAL ECHOCARDIOGRAM VP LEGAL AFFAIRS: PARIS WASHINGTON MD, RPVI INDICATION: Valvular heart disease SEDATION: Conscious sedation COMPLICATION: None LEVEL OF SEDATION Moderate to sedation length of 12 minutes PROCEDURE DESCRIPTION: After obtaining an informed consent, the patient was brought to transesophageal echocardiogram room. Pulse oximetry and heart monitors were attached to the patient. The patient throat was sprayed using lidocaine. The patient was turned into left lateral position. After that a bite guard was placed. After an appropriate conscious sedation was initiated, the transesophageal echocardiogram was advanced through a bite guard into the mid esophagus. A 2-D echocardiogram images, color Doppler images, continuous wave images, pulse-wave images, of various cardiac structure were performed. After that the transesophageal echocardiogram probe was advanced into the stomach and fixed to obtain transgastric view was. The probe was brought into the mid esophagus. Inter-atrial septum was interrogated using 2D images, color Doppler images, and then contrast study. After that transesophageal echocardiogram was withdrawn out and upon withdrawing the descending thoracic aorta all the way up to the ar ch was evaluated. CONCLUSION: 1. Normal LV systolic function. The ejection fraction is 55-60% 2. Moderate to severe mitral regurgitation. The mitral valve leaflets are mildly thickened. The PISA diameter was 0.9 cm with aliasing velocity of 55 cm/s 3. Moderate to severe tricuspid regurgitation 4. Mildly dilated right ventricle with normal function 5. Trileaflet aortic valve with moderate aortic insufficiency 6. No evidence of further cardiac effusion
[2023-11-23] MEDS: IV FLUID CONTINUATION 1,000 ML IV ONE (13:03)
--- NOTE | 2023-11-23 13:12 | P.PCN ---
Date of Procedure: 11/23/23 Operative Findings: Right heart catheterization Performing physician Ricardo Hairston M.D. Procedure performed Right heart catheterization Indication Shortness of breath Complication None Level of sedation Moderate with sedation in length of 12 minutes new Procedure description After obtaining an informed consent the patient was brought to the cardiac veterinarian laboratory animal care. After that a swan catheter under fluoroscopy guidance was advanced through the vein in the right arm all the way to the pulmonary capillary wedge position and subsequently pulled back the pulmonary artery and right ventricle and right atrium. We only did pressures. The procedure was completed was no complication Finding Pulmonary capillary wedge pressure was 12 mmHg PA pressures were as follow systolic of 35 and diastolic of 21 and mean of 24 mmHg RV pressures were as follow systolic of 31 and in diastole, 14 mmHg RA pressure was 12 mmHg Conclusion Elevated right-sided filling pressure Normal pulmonary artery pressure
[2023-11-23 15:40] VITALS: BP 109/71; PULSE 92
== END ==
LOC: CATHCVL 10:03
PROVIDERS: ATTEND Internal Medicine Interventional Cardiology
DX: I25.10 Atherosclerotic heart disease of native coronary artery without angina pectoris (principal); I48.0 Paroxysmal atrial fibrillation; I08.3 Combined rheumatic disorders of mitral, aortic and tricuspid valves; I73.9 Peripheral vascular disease, unspecified; F17.210 Nicotine dependence, cigarettes, uncomplicated; Z79.82 Long term (current) use of aspirin; Z79.01 Long term (current) use of anticoagulants; Z79.899 Other long term (current) drug therapy; Z82.49 Family history of ischemic heart disease and other diseases of the circulatory system
CPT/HCPCS: 93312; 93320; 93325; 80048; C1769; C1894; C1751; J2250; J3010; 93451